=== PATIENT | female | born 2000 | race Asian ===

== ENCOUNTER 2020-12-13 15:03 | Emergency (ER) | payer OTHER ==
[~2020-12-13] VITALS: Ht 170.2 cm; Wt 59.1 kg
[2020-12-13] MEDS ORDERED: SERT-158 PO (15:15)
[2020-12-13] MEDS ORDERED: ISOT30CA14 PO (15:15)
[2020-12-13] MEDS ORDERED: BIRTH CONTROL PILL PO (15:15)
[2020-12-13 15:18] VITALS: BP 116/85
[2020-12-13] MEDS ORDERED: IBUPROFEN 600 MG TABLET PO ONE (17:00)
[2020-12-13] MEDS ORDERED: HYDROmorphone 2 MG/ML VIAL IM ONE (17:00)
[2020-12-13] MEDS ORDERED: ONDANSETRON HCL 4 MG/2 ML VIAL IM ONE (17:00)
== END 2020-12-13 18:20 | disposition home or self-care (01) ==
LOC: EMS 15:06
DX: S82.851A Displaced trimalleolar fracture of right lower leg, initial encounter for closed fracture (principal); F41.9 Anxiety disorder, unspecified; F17.210 Nicotine dependence, cigarettes, uncomplicated; F12.90 Cannabis use, unspecified, uncomplicated; V00.131A Fall from skateboard, initial encounter; Y93.51 Activity, roller skating (inline) and skateboarding; Y92.89 Other specified places as the place of occurrence of the external cause; Y99.8 Other external cause status
CPT/HCPCS: 29515; 73610; 96372; 99284; J1170; J2405; 29540